=== PATIENT | male | born 1950 | race Caucasian/White ===

== ENCOUNTER → 2018-01-09 | Day surgery (SDC) | payer MEDICARE, OTHER ==
[~2018-01-09] VITALS: Ht 193 cm; Wt 158.8 kg
[~2018-01-09] MED LIST: ALLO-119 PO; AMLO1TAB51 PO; ASPI-1471 PO; IBUP800T37 PO; LEVO88TA45 PO; LISI-351 PO; MULT1CAP59 PO; OMEG1CAP88 PO; VIT-9 PO
[2018-01-09] MEDS: LIDOCAINE/SOD BICARB 8.4% SYR ID ONE ×2 (10:34→11:00)
[2018-01-09] MEDS: NORMOSOL R SOLN(*) 1000 ML BAG 1,000 ML IV PRN ×2 (10:34→11:00)
--- NOTE | 2018-01-09 11:41 | RADIOLOGY IMAGING REPORT ---
FACILITY: [facility] [place] PATIENT NAME: Lew Morin : 1950 MR: [id number] V: [id number] EXAM DATE: ORDERING PHYSICIAN: KWASI ARMENDARIZ TECHNOLOGIST: Location: [facility] Patient: Lew Morin : 1950 Visit/Account:[id number] Date of Sevice: 01/09/2018 SHOULDER LEFT W/O CONTRAST IMPRESSION: MRI was scheduled but not performed because of body habitus, reportedly he did not fit in the MRI mag net. No conscious sedation was given. There should be no charge for this exam. Report Dictated By: Domenic Mullins at 01/09/2018 11:34 AM Report E-Signed By: Domenic Mullins at 01/09/2018 11:35 AM WSN:[id number]
== END ==
LOC: OR 02:50
PROVIDERS: ATTEND Orthopaedic Surgery
DX: Z02.9 Encounter for administrative examinations, unspecified (principal)